=== PATIENT | male | born 1980 | race African-American/Black ===

== ENCOUNTER 2020-10-28 18:30 | Emergency (ER) | payer OTHER ==
[~2020-10-28] VITALS: Ht 175.3 cm; Wt 108.9 kg
[2020-10-28] MEDS ORDERED: PERCOCET 10-321 EAC1 PO (19:35)
[2020-10-28] MEDS ORDERED: NORCO5 PO (21:19)
[2020-10-28] MEDS ORDERED: CYCLOBENZAPRINE5 MG PO (21:19)
[2020-10-28] MEDS ORDERED: MEDROLDOSEPACK PO (21:19)
[2020-10-28 21:44] VITALS: BP 144/91
== END 2020-10-28 21:45 | disposition home or self-care (01) ==
LOC: ER 18:30
DX: M54.5 Low back pain (principal); F17.200 Nicotine dependence, unspecified, uncomplicated